=== PATIENT | female | born 1995 | race Two or more races ===

== ENCOUNTER 2021-01-28 01:18 | Emergency (ER) | END 2021-01-28 01:31 | disposition left against medical advice (07) | LOC: M ED 01:31 | DX: Z53.21 Procedure and treatment not carried out due to patient leaving prior to being seen by health care provider (principal) ==

== ENCOUNTER 2022-09-24 02:09 | Emergency (ER) | payer SELFPAY ==
[~2022-09-24] VITALS: Ht 157.5 cm; Wt 78.3 kg
[2022-09-24 02:10] VITALS: BP 136/88
== END 2022-09-24 02:59 | disposition left against medical advice (07) ==
LOC: M ED 02:09
DX: R10.2 Pelvic and perineal pain (principal); Z53.21 Procedure and treatment not carried out due to patient leaving prior to being seen by health care provider

== ENCOUNTER 2022-11-09 15:59 | Emergency (ER) | payer OTHER, SELFPAY ==
[~2022-11-09] VITALS: Ht 157.5 cm; Wt 75.0 kg
[2022-11-09 17:00] VITALS: BP 160/83; O2SAT 98
[2022-11-09 17:05] LABS: BASO # 0.1 10^3/uL (0.0-0.2); BASO % 0.4 % (0.0-1.0); EOS % 0.1 % (0.0-3.0); HEMATOCRIT 40.2 % (36.0-47.0); HEMOGLOBIN 13.4 g/dl (12.0-15.5); LYMPH # 1.3 10^3/uL (1.5-5.0); LYMPH % 7.5 % (24.0-44.0); MEAN CORPUSCULAR HEMOGLOBIN 29.6 pg (27.0-33.0); MEAN CORPUSCULAR HGB CONC 33.3 g/dl (32.0-36.5); MEAN CORPUSCULAR VOLUME 88.7 fl (80.0-96.0); MONO # 0.7 10^3/uL (0.0-0.8); MONO % 4.1 % (2.0-8.0); NEUTROPHILS # 15.2 10^3/uL (1.5-8.5); NEUTROPHILS % 87.3 % (36.0-66.0); PLATELET COUNT, AUTOMATED 353 10^3/uL (150-450); RED BLOOD COUNT 4.53 10^6/uL (4.00-5.40); WHITE BLOOD COUNT 17.4 10^3/uL (4.0-10.0)
[2022-11-09 17:08] LABS: VENOUS BASE EXCESS -3.1 (-2.0-2.0); VENOUS HCO3 23.1 MMOL/L (23.0-27.0); VENOUS PARTIAL PRESSURE CO2 45.7 mmHg (38.0-50.0); VENOUS PARTIAL PRESSURE O2 42.7 mmHg (30.0-50.0); VENOUS PH 7.322 UNITS (7.330-7.430); VENOUS STANDARD HCO3 21.4 MMOL/L; VENOUS TOTAL CO2 24.5 MMOL/L (24.0-28.0)
[2022-11-09 17:29] LABS: OSMOLALITY SERUM 284 MOSM/KG (275-295)
[2022-11-09 17:30] LABS: ETHYL ALCOHOL (ETHANOL) < 0.003 % (0.000-0.010)
[2022-11-09 17:31] LABS: ACETAMINOPHEN LEVEL < 2.0 UG/ML (10.0-20.0); ALBUMIN 4.8 G/DL (3.2-5.2); ALKALINE PHOSPHATASE 71 U/L (46-116); ALT/SGPT < 9 U/L (7.0-40); AST/SGOT 44 U/L (<34); BILIRUBIN,DIRECT 0.2 MG/DL (<0.4); BILIRUBIN,TOTAL 0.7 MG/DL (0.3-1.2); BLOOD UREA NITROGEN 27 MG/DL (9-23); CALCIUM LEVEL 9.4 MG/DL (8.5-10.1); CARBON DIOXIDE LEVEL 23 MMOL/L (20-31); CHLORIDE LEVEL 101 MMOL/L (98-107); CREATININE FOR GFR 1.07 MG/DL (0.55-1.30); GLOMERULAR FILTRATION RATE > 60.0 (>60); GLUCOSE, FASTING 73 MG/DL (60-100); POTASSIUM SERUM 3.8 MMOL/L (3.5-5.1); SALICYLATE LEVEL < 3.0 MG/DL (<30); SODIUM LEVEL 135 MMOL/L (136-145); TOTAL PROTEIN 7.7 G/DL (5.7-8.2)
[2022-11-09 17:33] LABS: THYROID STIMULATING HORMONE 1.559 uIU/ML (0.55-4.78)
[2022-11-09 17:51] LABS: INR 0.96
[2022-11-09] MEDS ORDERED: NS 1,000 ML IV SCH (17:55)
[2022-11-09 17:56] VITALS: TEMP 97.9
== END 2022-11-09 18:20 | disposition left against medical advice (07) ==
LOC: EDBD 15:59 → M ED 15:59
DX: T14.8XXA Other injury of unspecified body region, initial encounter (principal); X58.XXXA Exposure to other specified factors, initial encounter; Y92.89 Other specified places as the place of occurrence of the external cause; Y93.89 Activity, other specified; Y99.8 Other external cause status; Z88.0 Allergy status to penicillin

== ENCOUNTER 2022-12-12 13:00 | Emergency (ER) | payer OTHER, SELFPAY ==
[~2022-12-12] VITALS: Ht 157.5 cm; Wt 77.1 kg
[~2022-12-12 13:00] MED LIST: ZYPR5TAB2 PO
[2022-12-12 13:47] LABS: HEMATOCRIT 37.6 % (36.0-47.0); HEMOGLOBIN 11.8 g/dl (12.0-15.5); MEAN CORPUSCULAR HEMOGLOBIN 28.6 pg (27.0-33.0); MEAN CORPUSCULAR HGB CONC 31.4 g/dl (32.0-36.5); PLATELET COUNT, AUTOMATED 306 10^3/uL (150-450); RED BLOOD COUNT 4.13 10^6/uL (4.00-5.40)
[2022-12-12 14:13] LABS: ETHYL ALCOHOL (ETHANOL) < 0.003 % (0.000-0.010)
[2022-12-12 14:15] LABS: SALICYLATE LEVEL < 3.0 MG/DL (<30)
[2022-12-12 14:16] LABS: ACETAMINOPHEN LEVEL < 2.0 UG/ML (10.0-20.0); ALKALINE PHOSPHATASE 58 U/L (46-116); ALT/SGPT 23 U/L (7.0-40); AST/SGOT 12 U/L (<34); BILIRUBIN,DIRECT 0.1 MG/DL (<0.4); BILIRUBIN,TOTAL 0.4 MG/DL (0.3-1.2); BLOOD UREA NITROGEN 19 MG/DL (9-23); CALCIUM LEVEL 9.3 MG/DL (8.5-10.1); CARBON DIOXIDE LEVEL 28 MMOL/L (20-31); CHLORIDE LEVEL 106 MMOL/L (98-107); CREATININE FOR GFR 0.61 MG/DL (0.55-1.30); GLOMERULAR FILTRATION RATE > 60.0 (>60); GLUCOSE, FASTING 99 MG/DL (60-100); POTASSIUM SERUM 4.4 MMOL/L (3.5-5.1); SODIUM LEVEL 140 MMOL/L (136-145); TOTAL PROTEIN 6.9 G/DL (5.7-8.2)
[2022-12-12 14:18] LABS: THYROID STIMULATING HORMONE 1.345 uIU/ML (0.55-4.78)
[2022-12-12 14:24] LABS: BARBITURATES URINE NEGATIVE (NEGATIVE); BENZODIAZEPINES URINE NEGATIVE (NEGATIVE); CANNABINOIDS URINE NEGATIVE (NEGATIVE); COCAINE METABOLITE URINE NEGATIVE (NEGATIVE); METHADONE URINE NEGATIVE (NEGATIVE); OPIATES URINE NEGATIVE (NEGATIVE); PHENCYCLIDINE URINE NEGATIVE (NEGATIVE)
[2022-12-12] MEDS ORDERED: OLANZapine ORAL DISINTEGRATING TAB 5MG PO ONE (14:25)
[2022-12-12 14:26] LABS: AMPHETAMINES LEVEL URINE POSITIVE (NEGATIVE)
[2022-12-12 14:42] LABS: HCG, SERUM QUALITATIVE NEGATIVE (NEGATIVE)
[2022-12-12] MEDS ORDERED: LORazepam 2 MG TAB PO STA (17:11)
[2022-12-12] MEDS ORDERED: diphenhydrAMINE 50MG CAP PO ONE (17:15)
[2022-12-13] MEDS ORDERED: OLAN1TAB16 PO (05:52)
[2022-12-13] MEDS ORDERED: PATIENT COMMENT (05:52)
[2022-12-13] MEDS ORDERED: HOME MED LIST COMPLETE! XX SCH (06:00)
[2022-12-13 11:56] VITALS: BP 130/83; TEMP 97; O2SAT 100
== END 2022-12-13 12:15 | disposition home or self-care (01) ==
LOC: M ED 13:00
DX: F19.959 Other psychoactive substance use, unspecified with psychoactive substance-induced psychotic disorder, unspecified (principal)

== ENCOUNTER 2022-12-29 01:55 | Inpatient (IN) | payer MEDICAID ==
[~2022-12-29] VITALS: Ht 160 cm; Wt 78.5 kg
[~2022-12-29 01:55] MED LIST changes: +OLAN1TAB16 PO; +PATIENT COMMENT
[2022-12-29 02:41] LABS: HEMATOCRIT 34.4 % (36.0-47.0); HEMOGLOBIN 10.8 g/dl (12.0-15.5); MEAN CORPUSCULAR HGB CONC 31.4 g/dl (32.0-36.5); MEAN CORPUSCULAR VOLUME 89.1 fl (80.0-96.0); PLATELET COUNT, AUTOMATED 271 10^3/uL (150-450); RED BLOOD COUNT 3.86 10^6/uL (4.00-5.40); WHITE BLOOD COUNT 8.2 10^3/uL (4.0-10.0)
[2022-12-29 03:05] LABS: ETHYL ALCOHOL (ETHANOL) < 0.003 % (0.000-0.010)
[2022-12-29 03:06] LABS: ACETAMINOPHEN LEVEL < 2.0 UG/ML (10.0-20.0); CPK CREATINE PHOSPHOKINASE 192 U/L (34-145)
[2022-12-29 03:07] LABS: ALBUMIN 3.8 G/DL (3.2-5.2); ALKALINE PHOSPHATASE 57 U/L (46-116); ALT/SGPT 21 U/L (7.0-40); AST/SGOT 16 U/L (<34); BILIRUBIN,DIRECT 0.2 MG/DL (<0.4); BILIRUBIN,TOTAL 0.6 MG/DL (0.3-1.2); BLOOD UREA NITROGEN 19 MG/DL (9-23); CALCIUM LEVEL 8.9 MG/DL (8.5-10.1); CARBON DIOXIDE LEVEL 25 MMOL/L (20-31); CHLORIDE LEVEL 105 MMOL/L (98-107); CREATININE FOR GFR 0.68 MG/DL (0.55-1.30); GLOMERULAR FILTRATION RATE > 60.0 (>60); GLUCOSE, FASTING 97 MG/DL (60-100); POTASSIUM SERUM 3.7 MMOL/L (3.5-5.1); SALICYLATE LEVEL < 3.0 MG/DL (<30); SODIUM LEVEL 139 MMOL/L (136-145)
[2022-12-29 03:08] LABS: HCG, SERUM QUALITATIVE NEGATIVE (NEGATIVE)
[2022-12-29 05:12] LABS: BARBITURATES URINE NEGATIVE (NEGATIVE); BENZODIAZEPINES URINE NEGATIVE (NEGATIVE); CANNABINOIDS URINE NEGATIVE (NEGATIVE); COCAINE METABOLITE URINE NEGATIVE (NEGATIVE); METHADONE URINE NEGATIVE (NEGATIVE); OPIATES URINE NEGATIVE (NEGATIVE); PHENCYCLIDINE URINE NEGATIVE (NEGATIVE)
[2022-12-29 05:27] LABS: AMPHETAMINES LEVEL URINE POSITIVE (NEGATIVE)
[2022-12-29] MEDS ORDERED: HOME MED LIST COMPLETE! XX SCH (05:30)
[2022-12-29] MEDS: NICOTINE 21MG/24HR 1 EA TRANSDERMAL TD SCH (09:00)
[2022-12-29] MEDS ORDERED: OLANZapine 5 MG TAB PO SCH (09:00)
[2022-12-29] MEDS ORDERED: MOM 30ML SUSPENSION UDC PO PRN (13:55)
[2022-12-29] MEDS ORDERED: IBUPROFEN 400MG TAB PO PRN (13:55)
[2022-12-29] MEDS ORDERED: MAALOX 30 ML SUSP *UDC PO PRN (13:55)
[2022-12-29 17:43] VITALS: BP 122/81; TEMP 97.2; O2SAT 97
[2022-12-29] MEDS: diphenhydrAMINE 25MG CAP PO PRN (18:18)
[2022-12-29] MEDS: OLANZapine 5 MG TAB PO SCH (21:37)
[2022-12-29] MEDS: ACETAMINOPHEN TAB 650MG DOSE (2X325MG) PO PRN (21:38)
[2022-12-30 06:30] VITALS: BP 116/59; TEMP 96.8; O2SAT 98
[2022-12-30] MEDS: NICOTINE 21MG/24HR 1 EA TRANSDERMAL TD SCH (09:00)
[2022-12-30] MEDS: OLANZapine 5 MG TAB PO SCH ×2 (09:17→20:14)
[2022-12-30] MEDS: ACETAMINOPHEN TAB 650MG DOSE (2X325MG) PO PRN ×2 (10:44→22:28)
[2022-12-30] MEDS: diphenhydrAMINE 25MG CAP PO PRN ×2 (10:44→20:14)
[2022-12-30 18:02] VITALS: BP 117/61; TEMP 97.6; O2SAT 99
[2022-12-30] MEDS: OLANZapine ORAL DISINTEGRATING TAB 5MG PO PRN (18:47)
[2022-12-30] MEDS: traZODone 50 MG TAB PO PRN (20:14)
[2022-12-31 06:37] VITALS: BP 121/76; TEMP 97.9; O2SAT 99
[2022-12-31] MEDS: NICOTINE 21MG/24HR 1 EA TRANSDERMAL TD SCH (09:00)
[2022-12-31] MEDS: OLANZapine 5 MG TAB PO SCH ×2 (09:05→21:15)
[2022-12-31] MEDS: diphenhydrAMINE 25MG CAP PO PRN (16:09)
[2022-12-31 16:44] VITALS: BP 121/81; TEMP 98.6
[2022-12-31] MEDS: OLANZapine ORAL DISINTEGRATING TAB 5MG PO PRN (17:39)
[2022-12-31] MEDS: traZODone 50 MG TAB PO PRN (21:15)
[2022-12-31] MEDS: ACETAMINOPHEN TAB 650MG DOSE (2X325MG) PO PRN (21:15)
[2023-01-01 06:19] VITALS: BP 120/71; TEMP 97.6; O2SAT 99
[2023-01-01] MEDS: OLANZapine 5 MG TAB PO SCH ×2 (08:33→21:01)
[2023-01-01] MEDS: diphenhydrAMINE 25MG CAP PO PRN (08:34)
[2023-01-01] MEDS: ACETAMINOPHEN TAB 650MG DOSE (2X325MG) PO PRN ×2 (08:35→21:01)
[2023-01-01] MEDS: NICOTINE 21MG/24HR 1 EA TRANSDERMAL TD SCH (09:00)
[2023-01-01] MEDS: OLANZapine ORAL DISINTEGRATING TAB 5MG PO PRN (17:10)
[2023-01-01 18:00] VITALS: BP 132/86; TEMP 97.5
[2023-01-01] MEDS: traZODone 50 MG TAB PO PRN (21:01)
[2023-01-02 06:19] VITALS: BP 131/80; TEMP 97.5; O2SAT 100
[2023-01-02] MEDS: OLANZapine 5 MG TAB PO SCH (08:26)
[2023-01-02] MEDS: NICOTINE 21MG/24HR 1 EA TRANSDERMAL TD SCH (08:26)
[2023-01-02] MEDS: diphenhydrAMINE 25MG CAP PO PRN (14:36)
[2023-01-02 19:14] VITALS: BP 138/82; TEMP 96
[2023-01-02] MEDS: traZODone 50 MG TAB PO PRN (20:03)
[2023-01-02] MEDS: OLANZapine 10 MG TAB PO SCH (20:03)
[2023-01-03 06:32] VITALS: BP 137/92; TEMP 98.4; O2SAT 100
[2023-01-03] MEDS: OLANZapine 10 MG TAB PO SCH ×2 (08:49→20:12)
[2023-01-03] MEDS: NICOTINE 21MG/24HR 1 EA TRANSDERMAL TD SCH (08:49)
[2023-01-03] MEDS: diphenhydrAMINE 25MG CAP PO PRN (12:04)
[2023-01-03] MEDS: ACETAMINOPHEN TAB 650MG DOSE (2X325MG) PO PRN (12:05)
[2023-01-03 18:14] VITALS: BP 130/82; TEMP 97.6; O2SAT 98
[2023-01-03] MEDS: traZODone 50 MG TAB PO PRN (20:12)
[2023-01-04 07:01] VITALS: BP 142/90; TEMP 98.2; O2SAT 99
[2023-01-04] MEDS: OLANZapine 10 MG TAB PO SCH ×2 (08:12→20:05)
[2023-01-04] MEDS: NICOTINE 21MG/24HR 1 EA TRANSDERMAL TD SCH (09:00)
[2023-01-04] MEDS: diphenhydrAMINE 25MG CAP PO PRN (12:35)
[2023-01-04] MEDS: ACETAMINOPHEN TAB 650MG DOSE (2X325MG) PO PRN (12:36)
[2023-01-04 18:01] VITALS: BP 137/89; TEMP 97.4; O2SAT 99
[2023-01-04] MEDS: traZODone 50 MG TAB PO PRN (20:04)
[2023-01-05 06:44] VITALS: BP 132/87; TEMP 98; O2SAT 100
[2023-01-05] MEDS: OLANZapine 10 MG TAB PO SCH (08:23)
[2023-01-05] MEDS: NICOTINE 21MG/24HR 1 EA TRANSDERMAL TD SCH (08:24)
[2023-01-05] MEDS ORDERED: NICO21PAT TD (11:35)
[2023-01-05] MEDS ORDERED: OLAN1TAB20 PO (11:35)
[2023-01-05] MEDS ORDERED: TRAZ-252 PO (11:35)
== END 2023-01-05 13:45 | disposition home or self-care (01) | DRG 750 ==
LOC: M ED 01:55 → M ED INP 13:55 → M PSY 17:39
PROVIDERS: ADMIT Student in an Organized Health Care Education/Training Program; ATTEND Student in an Organized Health Care Education/Training Program
DX: F25.9 Schizoaffective disorder, unspecified (principal); F15.159 Other stimulant abuse with stimulant-induced psychotic disorder, unspecified; Z91.128 Patient's intentional underdosing of medication regimen for other reason; Z88.0 Allergy status to penicillin; Z79.899 Other long term (current) drug therapy; D64.9 Anemia, unspecified; N92.0 Excessive and frequent menstruation with regular cycle; R56.9 Unspecified convulsions

== ENCOUNTER 2023-01-13 21:16 | Inpatient (IN) | payer MEDICAID ==
[~2023-01-13] VITALS: Ht 157.5 cm; Wt 78.5 kg
[~2023-01-13 21:16] MED LIST changes: +NICO21PAT TD; +OLAN1TAB20 PO; +TRAZ-252 PO
[2023-01-13] MEDS ORDERED: OLANZapine 10 MG TAB PO ONE (22:00)
[2023-01-13 22:58] LABS: BARBITURATES URINE NEGATIVE (NEGATIVE); BENZODIAZEPINES URINE NEGATIVE (NEGATIVE); CANNABINOIDS URINE NEGATIVE (NEGATIVE); COCAINE METABOLITE URINE NEGATIVE (NEGATIVE); METHADONE URINE NEGATIVE (NEGATIVE); OPIATES URINE NEGATIVE (NEGATIVE); PHENCYCLIDINE URINE NEGATIVE (NEGATIVE)
[2023-01-13 23:07] LABS: AMPHETAMINES LEVEL URINE POSITIVE (NEGATIVE)
[2023-01-14] LABS: HEMATOCRIT 37.9 % (36.0-47.0); HEMOGLOBIN 12.1 g/dl (12.0-15.5); MEAN CORPUSCULAR HEMOGLOBIN 28.1 pg (27.0-33.0); MEAN CORPUSCULAR HGB CONC 31.9 g/dl (32.0-36.5); MEAN CORPUSCULAR VOLUME 88.1 fl (80.0-96.0); PLATELET COUNT, AUTOMATED 285 10^3/uL (150-450); WHITE BLOOD COUNT 7.9 10^3/uL (4.0-10.0)
[2023-01-14 00:22] LABS: ETHYL ALCOHOL (ETHANOL) < 0.003 % (0.000-0.010); HCG, SERUM QUALITATIVE NEGATIVE (NEGATIVE)
[2023-01-14 00:24] LABS: ACETAMINOPHEN LEVEL < 2.0 UG/ML (10.0-20.0); ALBUMIN 4.1 G/DL (3.2-5.2); ALKALINE PHOSPHATASE 59 U/L (46-116); ALT/SGPT 13 U/L (7.0-40); AST/SGOT 11 U/L (<34); BILIRUBIN,DIRECT 0.1 MG/DL (<0.4); BILIRUBIN,TOTAL 0.3 MG/DL (0.3-1.2); BLOOD UREA NITROGEN 21 MG/DL (9-23); CALCIUM LEVEL 9.3 MG/DL (8.5-10.1); CARBON DIOXIDE LEVEL 24 MMOL/L (20-31); CHLORIDE LEVEL 108 MMOL/L (98-107); CREATININE FOR GFR 0.79 MG/DL (0.55-1.30); GLOMERULAR FILTRATION RATE > 60.0 (>60); GLUCOSE, FASTING 109 MG/DL (60-100); POTASSIUM SERUM 3.8 MMOL/L (3.5-5.1); SALICYLATE LEVEL < 3.0 MG/DL (<30); SODIUM LEVEL 143 MMOL/L (136-145); TOTAL PROTEIN 7.2 G/DL (5.7-8.2)
[2023-01-14] MEDS ORDERED: traZODone 50 MG TAB PO ONE (00:40)
[2023-01-14] MEDS ORDERED: MED REC CURRENTLY UNOBTAINABLE XX SCH (05:50)
[2023-01-14] MEDS ORDERED: OLANZapine 10 MG TAB PO SCH (14:00)
[2023-01-14] MEDS ORDERED: traZODone 50 MG TAB PO PRN (14:00)
[2023-01-14] MEDS: ACETAMINOPHEN TAB 650MG DOSE (2X325MG) PO PRN ×2 (14:39→20:41)
[2023-01-14] MEDS ORDERED: OLAN1TAB20 PO (14:40)
[2023-01-14] MEDS ORDERED: TRAZ-252 PO (14:40)
[2023-01-14] MEDS ORDERED: NICO1DIS12 TD (14:40)
[2023-01-14] MEDS ORDERED: HOME MED LIST COMPLETE! XX SCH (14:45)
[2023-01-14] MEDS: OLANZapine 5 MG TAB PO SCH (20:40)
[2023-01-15] MEDS: NICOTINE 21MG/24HR 1 EA TRANSDERMAL TD SCH (09:00)
[2023-01-15] MEDS: OLANZapine 5 MG TAB PO SCH (09:10)
[2023-01-15] MEDS: ACETAMINOPHEN TAB 650MG DOSE (2X325MG) PO PRN (15:28)
[2023-01-15] MEDS: OLANZapine 10 MG TAB PO SCH (20:08)
[2023-01-16] MEDS: NICOTINE 21MG/24HR 1 EA TRANSDERMAL TD SCH (09:00)
[2023-01-16] MEDS: OLANZapine 10 MG TAB PO SCH (10:25)
[2023-01-16] MEDS: ACETAMINOPHEN TAB 650MG DOSE (2X325MG) PO PRN (14:54)
[2023-01-16] MEDS ORDERED: MAALOX 30 ML SUSP *UDC PO PRN (18:00)
[2023-01-16] MEDS ORDERED: IBUPROFEN 400MG TAB PO PRN (18:00)
[2023-01-16] MEDS ORDERED: MOM 30ML SUSPENSION UDC PO PRN (18:00)
[2023-01-16] MEDS ORDERED: ACETAMINOPHEN TAB 650MG DOSE (2X325MG) PO PRN (18:00)
[2023-01-16] MEDS ORDERED: diphenhydrAMINE 25MG CAP PO PRN (18:00)
[2023-01-16] MEDS: OLANZapine ORAL DISINTEGRATING TAB 5MG PO SCH (21:21)
[2023-01-16] MEDS: traZODone 50 MG TAB PO PRN (21:21)
[2023-01-16 21:38] VITALS: BP 138/86; TEMP 97.7; O2SAT 99
[2023-01-17 06:23] VITALS: BP 140/83; TEMP 98.3
[2023-01-17] MEDS: OLANZapine ORAL DISINTEGRATING TAB 5MG PO SCH ×2 (09:14→20:35)
[2023-01-17] MEDS: NICOTINE 21MG/24HR 1 EA TRANSDERMAL TD SCH (09:15)
[2023-01-17] MEDS ORDERED: OLANZapine ORAL DISINTEGRATING TAB 5MG PO STA (15:59)
[2023-01-17 18:00] VITALS: BP 131/80; TEMP 98.6
[2023-01-17] MEDS: traZODone 50 MG TAB PO PRN (20:34)
[2023-01-18 06:58] VITALS: BP 130/81; TEMP 99.6; O2SAT 97
[2023-01-18] MEDS: OLANZapine ORAL DISINTEGRATING TAB 5MG PO SCH ×2 (08:54→20:12)
[2023-01-18] MEDS: NICOTINE 21MG/24HR 1 EA TRANSDERMAL TD SCH (09:00)
[2023-01-18 16:59] VITALS: BP 126/84; TEMP 99.5; O2SAT 98
[2023-01-18] MEDS: traZODone 50 MG TAB PO PRN (20:12)
[2023-01-19 06:48] VITALS: BP 124/82; TEMP 98.7; O2SAT 97
[2023-01-19] MEDS: OLANZapine ORAL DISINTEGRATING TAB 5MG PO SCH (08:45)
[2023-01-19] MEDS: NICOTINE 21MG/24HR 1 EA TRANSDERMAL TD SCH (08:46)
[2023-01-19] MEDS ORDERED: TRAZ-252 PO (09:12)
[2023-01-19] MEDS ORDERED: OLAN1TAB20 PO (09:12)
== END 2023-01-19 11:46 | disposition home or self-care (01) | DRG 751 ==
LOC: M ED 21:16 → M ED INP 01-16 17:56 → M PSY 01-16 21:11
PROVIDERS: ADMIT Student in an Organized Health Care Education/Training Program; ATTEND Student in an Organized Health Care Education/Training Program
DX: F29 Unspecified psychosis not due to a substance or known physiological condition (principal); Z79.899 Other long term (current) drug therapy; F15.159 Other stimulant abuse with stimulant-induced psychotic disorder, unspecified; F25.9 Schizoaffective disorder, unspecified; Z88.0 Allergy status to penicillin

== ENCOUNTER 2023-03-14 00:14 | Emergency (ER) | payer MEDICAID, OTHER, SELFPAY ==
[~2023-03-14] VITALS: Ht 157.5 cm; Wt 81.8 kg
[~2023-03-14 00:14] MED LIST changes: +NICO1DIS12 TD
[2023-03-14] MEDS ORDERED: DOXYCYCLINE HYCLATE 100MG TABLET PO ONE (01:30)
[2023-03-14] MEDS ORDERED: BOOSTRIX VACCINE (TETANUS/DIPHTH/ACEL. PERTUSSIS) 0.5ML SYR IM.IMMUN ONE (01:30)
[2023-03-14] MEDS ORDERED: DOXY-443 PO (01:31)
[2023-03-14 01:44] VITALS: BP 137/91; TEMP 98.1; O2SAT 98
== END 2023-03-14 02:03 | disposition home or self-care (01) ==
LOC: M ED 00:14
DX: S50.852A Superficial foreign body of left forearm, initial encounter (principal); Z79.899 Other long term (current) drug therapy; Z88.0 Allergy status to penicillin; F17.210 Nicotine dependence, cigarettes, uncomplicated; F15.90 Other stimulant use, unspecified, uncomplicated